=== PATIENT | male | born 1990 | race African-American/Black ===

== ENCOUNTER 2019-03-28 07:34 | Emergency (ER) | payer OTHER ==
[2019-03-28 07:45] VITALS: BP 100/55; PULSE 63; TEMP 98.2; BMI 21.9
[2019-03-28] MEDS ORDERED: ACETAMINOPHEN 325 MG TABLET (FP) PO ONE (08:40)
[2019-03-28] MEDS ORDERED: SODIUM CHLORIDE 1,000 ML IV SCH (08:45)
--- NOTE | 2019-03-28 08:51 | PDOC ---
History of Present Illness - General Chief Complaint: Cold Symptoms Stated Complaint: FLU LIKE SYMPTOMS Time Seen by Provider: 03/28/19 08:12 - History of Present Illness Initial Comments: 03/28/19 08:48 29 y/o M with no significant PMH presents to the ED c/o subjective fever,night sweats, sore throat, productive cough of non bloody/green sputum and muscle aches for the past 5 days. The symptoms are associated with a dull, non radiating, 7/10 chest pain exacerbated by inspiration. Pt denies any SOB, N/V, abdominal pain, FND, or urinary changes. Pt also endorsed a couple episodes of non bloody/loose stools. No flu shot or recent travel. No clear sick contact; however, works at a school with many sick contacts. PCP: nonw Meds: none PMH: none PSH: nonw Family Hx : non contributory Social Hx: 2-3 cigars a day for the past 5-7 years, occasional drinker, no illicit drug use. balanced diet and daily exercise. Works as a data warehouse manager. PE: Gen: NAD Pulm: vesicular breath sounds b/l but with faint wheezing more prominent in the LLL field. Cardio: RRR, normal S1 and S2 no MRG Abdomen : + BS, NTND Extremities: no sign of edema, motor strength 5/5 in all muscle group and sensation intact Assessement: Based on history and physical, DDX include: viral URI vs Flu .strep also in differential but unlikely in the setting of cough, no exudate, muscle ache and absence of lymphadenopathy. PNA cant be ruled out. Plan: CBC, CMP, rapid influenza, CXR to r/o PNA. will give tylenol PO once and 1L of NS, duoneb x1 in the setting of wheezing and smoking hx. 03/28/19 08:51 CBC pending 03/28/19 09:17 CXR no e/o Acute lung pathology. 03/28/19 09:39 flu negative 03/28/19 12:05 CBC with mild leukopenia and thrombocytopenia. CMP unremarkable, 03/28/19 12:28 pt received most likely suffering from viral illness which can explain lab changes. will discharge home and to f/u with PCP outpatient. Past History - Past Medical History Allergies/Adverse Reactions: Allergies Allergy/AdvReac Type Severity Reaction Status Date / Time No Known Allergies Allergy Verified 03/28/19 07:41 CVA: No COPD: No CHF: No DVT: No Dementia: No Diabetes: No - Immunization History Immunization Up to Date: Yes - Psycho Social/Smoking Cessation Hx Smoking History: Current every day smoker Information on smoking cessation initiated: No Hx Alcohol Use: No Drug/Substance Use Hx: No *Physical Exam - Vital Signs Last Vital Signs Temp Pulse Resp BP Pulse Ox 98.2 F 63 16 100/55 L 97 03/28/19 07:41 03/28/19 07:41 03/28/19 07:41 03/28/19 07:41 03/28/19 07:41 ED Treatment Course - LABORATORY CBC & Chemistry Diagram: 03/28/19 09:00 03/28/19 08:47 - RADIOLOGY Radiology Studies Ordered: Category Date Time Status CHEST PA & LAT [RAD] Stat Radiology 03/28/19 08:36 Ordered Discharge - Discharge Information Problems reviewed: Yes Clinical Impression/Diagnosis: Flu-like symptoms Condition: Stable Disposition: HOME - Admission No - Follow up/Referral - Patient Discharge Instructions Patient Printed Discharge Instructions: DI for Viral Upper Respiratory Infection -- Adult - Post Discharge Activity Work/Back to School Note: Back to Work
[2019-03-28] MEDS ORDERED: ACETAMINOPHEN 325 MG TABLET (FP) ONE (09:08)
[2019-03-28 09:26] LABS: BASO % 0.7 % (0-2.0); EOS % 2.3 % (0-4.5); HEMATOCRIT 44.1 % (35.4-49); HEMOGLOBIN 14.6 GM/dL (11.7-16.9); MCH 29.3 pg (25.7-33.7); MEAN CELL VOLUME 88.8 fl (80-96); MEAN PLT VOLUME 10.7 fl (7.5-11.1); MONO % 22.2 % (3.8-10.2); NEUT % 39.8 % (42.8-82.8); PLATELET COUNT 91 K/MM3 (134-434); RBC 4.97 M/mm3 (4.00-5.60); RDW 13.4 % (11.9-15.9)
[2019-03-28] MEDS ORDERED: ALBUTEROL SO4 2.5/IPRATROPIUM 0.5 INH SOL 3 ML VIAL.NEB. NEB ONE ×2 (09:27→09:55)
--- NOTE | 2019-03-28 09:32 | PDOC ---
Documentation entered by Juliette Chávez SCRIBE, acting as scribe for Carla Chan MD. Carla Chan MD: This documentation has been prepared by the Saira hernandez Nirvannie, SCRIBE, under my direction and personally reviewed by me in its entirety. I confirm that the documentation accurately reflects all work, treatment, procedures, and medical decision making performed by me. Attending Attestation - Resident Resident Name: Sandrita Austin - ED Attending Attestation I have performed the following: I have examined & evaluated the patient, The case was reviewed & discussed with the resident, I agree w/resident's findings & plan, Exceptions are as noted - HPI HPI: 03/28/19 09:51 The patient is a 29 year old male, with no significant past medical history, who presents to the emergency department with subjective fevers, diffuse myalgias, and cough with chest pain. Patient describes his cough as productive with green sputum. He describes his chest pain as a 7/10, dull pain worsened with deep inspiration. He notes associated nonbloody diarrhea. Patient is positive for sick contacts. Patient did not receive flu shot this year. Allergies: NKA - Physicial Exam PE: GENERAL: Awake, alert, and fully oriented, in no acute distress HEAD: No signs of trauma EYES: PERRLA, EOMI, sclera anicteric, conjunctiva clear ENT: Auricles normal inspection, hearing grossly normal, nares patent, oropharynx clear without exudates. Moist mucosa NECK: Normal ROM, supple, no lymphadenopathy, JVD, or masses LUNGS: Good air entry B/L, +scattered exp wheezes HEART: Regular rate and rhythm, normal S1 and S2, no murmurs, rubs or gallops ABDOMEN: Soft, nontender, normoactive bowel sounds. No guarding, no rebound. No masses EXTREMITIES: Normal range of motion, no edema. No clubbing or cyanosis. No cords, erythema, or tenderness NEUROLOGICAL: Cranial nerves II through XII grossly intact. Normal speech, normal gait. Motor and sensation intact SKIN: Warm, dry, normal turgor, no rashes or lesions noted. - Medical Decision Making Pt with symptoms of viral URI/flu. Partner in ED with similar symptoms. Will give neb in light of wheezing and his smoking history.
[2019-03-28 11:06] LABS: ALBUMIN 3.9 g/dl (3.4-5.0); BILIRUBIN,TOTAL 0.3 mg/dL (0.2-1); BLOOD UREA NITROGEN 11.2 mg/dL (7-18); CALCIUM 8.9 mg/dL (8.5-10.1); CREATININE 0.8 mg/dL (0.55-1.3); POTASSIUM 4.4 mmol/L (3.5-5.1); TOT PROT 7.3 g/dl (6.4-8.2)
[2019-03-28 11:55] LABS: PLATELET ESTIMATE DECREASED
== END 2019-03-28 13:00 | disposition home or self-care (01) ==
LOC: JER 07:34
PROC: 3E0F7GC Introduction of Other Therapeutic Substance into Respiratory Tract, Via Natural or Artificial Opening (ICD-10-PCS; principal; 2019-03-28)
DX: J06.9 Acute upper respiratory infection, unspecified (principal); B97.89 Other viral agents as the cause of diseases classified elsewhere
CPT/HCPCS: 36415; 71046-TC-FY; 80053; 85025; 87804; 94640; 99284-25; J7030

== ENCOUNTER 2020-09-28 23:01 | Emergency (ER) | payer OTHER ==
[2020-09-28 23:12] VITALS: BP 116/67; PULSE 74; TEMP 97; BMI 21.9
== END 2020-09-28 23:39 | disposition home or self-care (01) ==
LOC: JER 23:01
DX: Z11.52 Encounter for screening for COVID-19 (principal)
CPT/HCPCS: 99283-25; C9803; U0003; U0005